=== PATIENT | female | born 2000 | race Hispanic/Latino ===

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

== ENCOUNTER 2023-09-05 03:52 | Emergency (ER) | payer BC, MEDICAID, OTHER ==
[~2023-09-05] VITALS: Ht 152.4 cm; Wt 50.8 kg
[~2023-09-05 03:52] MED LIST changes: +NAPR-1196 PO
[2023-09-05 03:54] VITALS: BP 114/64; PULSE 65; RESP 20
[2023-09-05] MEDS ORDERED: HYDROCODONE/ACETAMINOPHEN 5/325 MG TAB PO ONE (04:30)
== END 2023-09-05 05:05 | disposition home or self-care (01) ==
LOC: EDH 03:52
DX: L60.0 Ingrowing nail (principal)